=== PATIENT | female | born 1990 | race Caucasian/White ===

== ENCOUNTER 2019-05-22 08:11 | Emergency (ER) | payer MEDICAID ==
--- NOTE | 2019-05-22 09:20 | EDM.PDOC ---
ED HPI GENERAL MEDICAL PROBLEM - General Chief Complaint: General Stated Complaint: LEFT SHOULDER PAIN Time Seen by Provider: 05/22/19 08:44 Source of Information: Reports: Patient, RN Notes Reviewed - History of Present Illness INITIAL COMMENTS - FREE TEXT/NARRATIVE: 28 rolled female comes in with severe left neck, shoulder and arm discomfort. She awakened with that this morning several hours ago. The discomfort continues. She also has had some mild numbness fingers of her left hand. There has been no fall or injury. She is about 27 weeks . No current difficulties with her . No chest pain or shortness of breath. No abdominal pain nausea or vomiting. Left Shoulder Pain Score (Numeric/FACES): 8 - Related Data Allergies Allergy/AdvReac Type Severity Reaction Status Date / Time cetirizine Allergy Rash Verified 05/22/19 08:44 Home Meds: Home Meds Albuterol [Proventil HFA] 2 puff INH Q4H PRN 05/22/19 [History] Calcitriol 0.5 mcg PO BID 05/22/19 [History] Fluticasone Propionate [Flonase] 16 gm NS ASDIRECTED PRN 05/22/19 [History] Levothyroxine Sodium [Synthroid] 150 mcg PO DAILY 05/22/19 [History] Loratadine [Claritin] 10 mg PO DAILY 05/22/19 [History] Magnesium 250 mg PO DAILY 05/22/19 [History] Metoclopramide HCl 10 mg PO BID 05/22/19 [History] Pantoprazole [ProTONIX] 40 mg PO BID 05/22/19 [History] Vits #93/Iron Fum/FA [ Formula Tablet] 1 each PO DAILY [History] Social & Family History - Tobacco Use Smoking Status *Q: Never Smoker - Caffeine Use Caffeine Use: Reports: Coffee - Recreational Drug Use Recreational Drug Use: No ED ROS GENERAL - Review of Systems Review Of Systems: See Below Constitutional: Denies: Fever, Chills HEENT: Denies: Throat Pain, Vertigo, Vision Change Respiratory: Denies: Shortness of Breath Cardiovascular: Denies: Chest Pain GI/Abdominal: Denies: Abdominal Pain, Vomiting Musculoskeletal: Reports: Neck Pain, Shoulder Pain, Arm Pain Skin: Reports: No Symptoms Neurological: Reports: Numbness (has had some numbness fingers of L hand, gone) . Denies: Weakness ED EXAM, GENERAL - Physical Exam Exam: See Below General Appearance: Alert, Mild Distress Throat/Mouth: Normal Inspection Head: Atraumatic. No: Facial Swelling Neck: Supple, Other (mild tenderness L base) Respiratory/Chest: No Respiratory Distress, Lungs Clear, Normal Breath Sounds Cardiovascular: Regular Rate, Rhythm GI/Abdominal: Soft, Non-Tender, Distended Back Exam: No: CVA Tenderness (L), CVA Tenderness (R) Extremities: Normal Inspection, Normal Range of Motion, Other (L shoulder, arm nontender, without warmth or erythema, no pain with motion). No: Increased Warmth, Redness Neurological: Alert, Oriented, No Motor/Sensory Deficits Skin Exam: Warm, Dry, Normal Color Course - Vital Signs Last Recorded V/S: Last Vital Signs Temp 99.0 F 05/22/19 08:48 Pulse 93 05/22/19 08:48 Resp 18 05/22/19 08:48 BP 118/67 05/22/19 08:48 Pulse Ox 97 05/22/19 08:48 Departure - Departure Time of Disposition: 09:18 Disposition: Home, Self-Care 01 Clinical Impression: Cervical radiculopathy, Third trimester - Discharge Information Instructions: Cervical Radiculopathy, [id number] Referrals: Enid Lind MD [Primary Care Provider] - Forms: ED Department Discharge Additional Instructions: rest arm and shoulder, no heavy lifting. Alternate ice and heat as needed. Tylenol 2 to 3 times daily for mild to moderate pain or 1/2 tablet hydrocodone with 500 mg tylenol up to 3 times daily. Physical therapy. Follow up with your regular medical provider if not much better within 5 to 10 days as expected.
== END 2019-05-22 09:30 | disposition home or self-care (01) ==
LOC: JD.ED 08:11
DX: O99.89 Other specified diseases and conditions complicating pregnancy, childbirth and the puerperium (principal); M54.12 Radiculopathy, cervical region; Z88.8 Allergy status to other drugs, medicaments and biological substances; Z79.899 Other long term (current) drug therapy; Z3A.27 27 weeks gestation of pregnancy
CPT/HCPCS: 99282; 99283

== ENCOUNTER 2019-07-27 06:57 | Inpatient (IN) | payer MEDICAID ==
[2019-07-27] MEDS ORDERED: Sodium Chloride 0.9% 10 ML Syringe FLUSH PRN (08:17)
[2019-07-27] MEDS ORDERED: Nalbuphine 10 MG/1 ML Vial IVPUSH PRN (08:17)
[2019-07-27] MEDS ORDERED: Oxytocin/Lactated Ringers 10 UNIT/1,000 ML BAG IV SCH ×3 (08:30→19:20)
[2019-07-27] MEDS: Lactated Ringers 1,000 ML IV SCH ×3 (09:07→15:49)
--- NOTE | 2019-07-27 10:52 | PCM.LDHP ---
L&D History of Present Illness - General Date of Service: 07/27/19 Admit Problem/Dx: Patient Status Order with Admit Dx/Problem 07/27/19 08:17 Patient Status [ADT] Routine Admission Diagnosis/Problem Admission Diagnosis/Problem 39 weeks gestation of Source of Information: Patient - History of Present Illness Introduction:: Debbie Price is a 28-year-old -0-0-2 at 39 weeks and 0 days by certain LMP and consistent with early ultrasound who presents for elective induction of labor. She has been having ongoing Jerald Souza contractions that will occur every couple of hours that have been getting stronger over the last week. She denies any leaking of fluid or vaginal bleeding. Denies any irregularity to the contractions. Reports good movement. Timing/Duration: Reports: intermittent (And irregular contractions) Location, : Reports: Abdomen, Lower back, Pelvic Quality: Reports: Ache, Throbbing Severity: Moderate Improves with: Reports: None Worsens with: Reports: None Associated Symptoms: Denies: vaginal bleeding, vaginal discharge, vaginal fluid Present Illness Comments:: Debbie Price is a 28-year-old -0-0-2 at 39 weeks 0 days by LMP consistent with early ultrasound who presents for elective induction of labor. She has had routine care throughout the and started her care in [place] until she relocated to [place] at around 22 weeks gestational age. She was initially seeing Dr. Clark but transferred care to myself at 35 weeks gestational age. Her has been complicated by: * History of papillary thyroid cancer status post resection currently on Synthroid, calcitriol and vitamin D * History of asthma but mild in nature and not requiring albuterol inhaler * Gastroesophageal reflux disease * Endometriosis * Irritable bowel syndrome labs Blood type: O+ Antibody screen: Negative First trimester hematocrit/hemoglobin: 36.3%/12.4 on 12/26/2018 Platelets: 314 on 12/26/2018 Urine culture: Mixed mitch suggestive of contamination on 07/10/2019 Rubella status: Immune Hepatitis B surface antigen: Negative RPR: Negative HIV: Negative One hour glucose tolerance test: 139 3-hour glucose tolerance test: Normal Second trimester hemoglobin: 10.2 on 04/30/2019 Platelets: 317 on 04/30/2019 Third trimester hematocrit/hemoglobin: 31.0%/9.8 on 07/10/2019 Third trimester platelets: 387 on 07/10/2019 GBS status: Negative - Related Data Allergies/Adverse Reactions: Allergies Allergy/AdvReac Type Severity Reaction Status Date / Time cetirizine Allergy Rash Verified 05/22/19 08:44 Home Medications: Home Meds Albuterol [Proventil HFA] 2 puff INH Q4H PRN 05/22/19 [History] Calcitriol 0.5 mcg PO BID 05/22/19 [History] Fluticasone Propionate [Flonase] 16 gm NS ASDIRECTED PRN 05/22/19 [History] Levothyroxine Sodium [Synthroid] 150 mcg PO DAILY 05/22/19 [History] Loratadine [Claritin] 10 mg PO DAILY 05/22/19 [History] Magnesium 250 mg PO DAILY 05/22/19 [History] Metoclopramide HCl 10 mg PO BID 05/22/19 [History] Pantoprazole [ProTONIX] 40 mg PO BID 05/22/19 [History] Vits #93/Iron Fum/FA [ Formula Tablet] 1 each PO DAILY [History] Past Medical History Respiratory History: Reports: Asthma Gastrointestinal History: Reports: Irritable Bowel Syndrome 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 lymph node disectomy 2017 Social & Family History - Family History Family Medical History: Noncontributory - Tobacco Use Smoking Status *Q: Never Smoker Second Hand Smoke Exposure: No - Tobacco Core Measures Tobacco Use/Smoking Within Last 30 Days: No Smokeless Tobacco Use in Last 30 Days: No - Caffeine Use Caffeine Use: Reports: None - Recreational Drug Use Recreational Drug Use: No - Living Situation & Occupation Living situation: Reports: H&P Review of Systems - Review of Systems: Review Of Systems: See Below General: Denies: Fever, Chills, Malaise, Weakness, Fatigue HEENT: Denies: Post Nasal Drip, Sinus Congestion, Sore Throat Pulmonary: Denies: Shortness of Breath, Wheezing, Cough Cardiovascular: Denies: Chest Pain, Palpitations Gastrointestinal: Denies: Abdominal Pain, Constipation, Diarrhea, Nausea, Vomiting Genitourinary: Denies: Dysuria, Frequency, Burning, Pain, Urgency Skin: Denies: Rash, Lesions Psychiatric: Denies: Depression, Anxiety Neurological: Denies: Headache Hematologic/Lymphatic: Reports: Anemia L&D Exam - Exam Exam: See Below - Vital Signs Vital Signs: Last Vital Signs Temp 36.8 C 07/27/19 08:17 Pulse 82 07/27/19 08:17 Resp 16 07/27/19 08:17 BP 124/72 07/27/19 08:17 Pulse Ox Weight: 91.626 kg - OB Specific Contraction Duration (sec): 45-60 Contraction Frequency (min): 2-8 Contraction Intensity: Moderate Movement: Active Heart Tones: Present Heart Tones per Min: 140 (+15 x 15 accelerations, deceleration noted at 10 :14 AM, no additional decelerations) Heart Rate (FHR) Variability: Moderate (6-25 bmp) Presentation: Vertex Estimated Weight: 7.5-8 pounds by [facility] - Nolan Score Nolan Score Cervix Position: Midposition Nolan Score Consistency: Medium Nolan Score Effacement: 31-50% (40%) Nolan Score Dilation: 3-4 cm (3 cm) Nolan Score Infant's Station: -3 (-5) Nolan Score Total: 5 - Exam General: Alert, Oriented HEENT: Conjunctiva Clear, EOMI Neck: Supple, Trachea Midline, Other (Transverse scar noted at inferior neck) Lungs: Clear to Auscultation, Normal Respiratory Effort Cardiovascular: Regular Rate, Regular Rhythm GI/Abdominal Exam: Soft, Non-Tender, No Distention, Other (Gravid). No: Guarding, Rigid, Rebound Genitourinary: Normal external exam Extremities: Normal Inspection, Non-Tender, Pedal Edema (Trace in lower extremities to mid shins) Skin: Warm, Dry, Intact Psychiatric: Alert, Normal Affect, Normal Mood - Patient Data Lab Results Last 24 hrs: Laboratory Results - last 24 hr 07/27/19 Range/Units 08:32 WBC 13.05 H (3.98-10.04) K/mm3 RBC 3.97 L (3.98-5.22) M/mm3 Hgb 10.1 L (11.2-15.7) gm/dl Hct 32.0 L (34.1-44.9) % MCV 80.6 (79.4-94.8) fl MCH 25.4 L (25.6-32.2) pg MCHC 31.6 L (32.2-35.5) g/dl RDW Std Deviation 43.3 (36.4-46.3) fL Plt Count 332 (182-369) K/mm3 MPV 10.5 (9.4-12.3) fl Neut % (Auto) 76.8 H (34.0-71.1) % Lymph % (Auto) 15.8 L (19.3-51.7) % [place] % (Auto) 6.7 (4.7-12.5) % Eos % (Auto) 0.5 L (0.7-5.8) Baso % (Auto) 0.2 (0.1-1.2) % Neut # (Auto) 10.03 H (1.56-6.13) K/mm3 Lymph # (Auto) 2.06 (1.18-3.74) K/mm3 [place] # (Auto) 0.87 H (0.24-0.36) K/mm3 Eos # (Auto) 0.07 (0.04-0.36) K/mm3 Baso # (Auto) 0.02 (0.01-0.08) K/mm3 Result Diagrams: 07/27/19 08:32 - Problem List (1) 39 weeks gestation of SNOMED Code(s): 65544625 ICD Code: Z3A.39 - 39 WEEKS GESTATION OF Status: Acute Current Visit: Yes (2) Thyroid cancer SNOMED Code(s): 245001482 ICD Code: C73 - MALIGNANT NEOPLASM OF THYROID GLAND Status: Acute Current Visit: Yes (3) Endometriosis SNOMED Code(s): 051459502 ICD Code: N80.9 - ENDOMETRIOSIS, UNSPECIFIED Status: Acute Current Visit : Yes (4) Asthma SNOMED Code(s): 232362339 ICD Code: J45.909 - UNSPECIFIED ASTHMA, UNCOMPLICATED Status: Acute Current Visit: Yes (5) Gastroesophageal reflux in SNOMED Code(s): 01055310504439475 ICD Code: O99.619 - DISEASES OF THE DGSTV SYS COMP , UNSP TRIMESTER ; K21.9 - GASTRO-ESOPHAGEAL REFLUX DISEASE WITHOUT ESOPHAGITIS Status: Acute Current Visit: Yes Problem List Initiated/Reviewed/Updated: Yes Orders Last 24hrs: Active Orders 24 hr Category Date Time Status Patient Status [ADT] Routine ADT 07/27/19 08:17 Active Activity as Tolerated [RC] PFP Care 07/27/19 08:17 Active Communication Order [RC] ASDIRECTED Care 07/27/19 08:17 Active Communication Order [RC] ROUTINE Care 07/27/19 10:38 Ordered Heart Tones [RC] ASDIRECTED Care 07/27/19 08:17 Active Notify Provider Vital Signs [RC] PRN Care 07/27/19 08:19 Active Notify Provider [RC] PFP Care 07/27/19 08:17 Active Notify Provider [RC] PRN Care 07/27/19 08:17 Active Peripheral IV Care [RC] . DIRECTED Care 07/27/19 08:17 Active Pump Management, Intrathecal [RC] ASDIRECTED Care 07/27/19 08:20 Active Urinary Catheter Assessment [RC] ASDIRECTED Care 07/27/19 08:17 Active Vital Signs [RC] PER UNIT ROUTINE Care 07/27/19 08:17 Active Regular Diet [DIET] Diet 07/27/19 Breakfast Active RAPID PLASMA REAGIN,RPR [CHEM] Routine Lab 07/27/19 08:32 Received Lactated Ringers [Ringers, Lactated] 1,000 ml Med 07/27/19 08:30 Active IV ASDIRECTED Nalbuphine [Nubain] Med 07/27/19 08:17 Active 10 mg IVPUSH Q2H PRN Oxytocin/Lactated Ringers [Pitocin in LR 10 Units/1,000 Med 07/27/19 08:30 Active ML] 10 unit in 1,000 ml IV .CONTINUOUS Oxytocin/Lactated Ringers [Pitocin in LR 10 Units/1,000 Med 07/27/19 09:30 Active ML] 10 unit in 1,000 ml IV TITRATE Sodium Chloride 0.9% [Saline Flush] Med 07/27/19 08:17 Active 10 ml FLUSH ASDIRECTED PRN Electronic Heart Tones Ext w TOCO [WOMSER] Oth 07/27/19 08:17 Ordered Routine Electronic Heart Tones Internal [WOMSER] Per Unit Ot 07/27/19 08:17 Ordered Routine Peripheral IV Insertion Adult [OM.PC] Routine Oth 07/27/19 08:17 Ordered Resuscitation Status Routine Resus Stat 07/27/19 08:17 Ordered Medication Orders Lactated Ringer's (Ringers, Lactated) 1,000 mls @ 100 mls/hr IV ASDIRECTED SOMMER Last Admin: 07/27/19 09:07 Dose: 100 mls/hr Oxytocin/Lactated Ringer's (Pitocin In Lr 10 Units/1,000 Ml) 10 unit in 1,000 mls @ 100 mls/hr IV .CONTINUOUS SOMMER Oxytocin/Lactated Ringer's (Pitocin In Lr 10 Units/1,000 Ml) 10 unit in 1,000 mls @ 12 mls/hr IV TITRATE SOMMER; Protocol Last Titration: 07/27/19 09:30 Dose: 4 munits/min, 24 mls/hr Admin: 07/27/19 09:07 Dose: 2 munits/min, 12 mls/hr Nalbuphine HCl (Nubain) 10 mg IVPUSH Q2H PRN PRN Reason: Pain Sodium Chloride (Saline Flush) 10 ml FLUSH ASDIRECTED PRN PRN Reason: Keep Vein Open Assessment/Plan Comment:: Refer to observation for elective induction of labor Start Pitocin for induction of labor Continuous monitoring Place IV and have Lactated Ringer's at 125 ml/hr May have small amounts of regular diet Activity as tolerated May have epidural as desired Plans to breast-feed after delivery Patient to take all medications as prescribed Plan for artificial rupture of membranes once patient has had some progression of cervical dilation Anticipate vaginal delivery unless otherwise indicated Duy Tapia MD 11:03 AM 07/27/2019
[2019-07-27] MEDS ORDERED: Bupivacaine 0.25% 10 ML SDV ONE (12:00)
--- NOTE | 2019-07-27 13:29 | PCM.PNLD ---
Labor Progress Note - VS & Meds Vital Signs: Last Vital Signs Temp 36.8 C 07/27/19 08:17 Pulse 82 07/27/19 08:17 Resp 16 07/27/19 08:17 BP 124/72 07/27/19 08:17 Pulse Ox Active Medications: Current Medications Lactated Ringer's (Ringers, Lactated) 1,000 mls @ 100 mls/hr IV ASDIRECTED SOMMER Last Admin: 07/27/19 09:07 Dose: 100 mls/hr Oxytocin/Lactated Ringer's (Pitocin In Lr 10 Units/1,000 Ml) 10 unit in 1,000 mls @ 100 mls/hr IV .CONTINUOUS SOMMER Oxytocin/Lactated Ringer's (Pitocin In Lr 10 Units/1,000 Ml) 10 unit in 1,000 mls @ 12 mls/hr IV TITRATE SOMMER; Protocol Last Titration: 07/27/19 12:10 Dose: 8 munits/min, 48 mls/hr Nalbuphine HCl (Nubain) 10 mg IVPUSH Q2H PRN PRN Reason: Pain Sodium Chloride (Saline Flush) 10 ml FLUSH ASDIRECTED PRN PRN Reason: Keep Vein Open Discontinued Medications Oxytocin 20 unit/ Lactated (Ringer's) 1,002 mls @ 6.01 mls/hr IV TITRATE SOMMER; Protocol - Uterine Contractions Contraction Frequency (min): 1-3 Contraction Duration (sec): 45-60 Contraction Intensity: Moderate to Strong Uterine Resting Tone: Soft - Monitoring Monitor Mode: Doppler/Auscultation Heart Rate (FHR) Baseline: 140 Heart Rate (FHR) Per Doppler: 140 Heart Rate (FHR) Variability: Moderate (6-25 bmp) Accelerations: Present, 15x15 Decelerations: None Strip Review: Category I - Vaginal Exam Dilation (cm): 5 cm Effacement (Percent): 80% Station: -3 Cervical Position: Midposition Sterile Vaginal Exam Performed By: Duy Tapia Vaginal Exam Comment: Artificial rupture of membranes with [place] performed. Return of clear fluid mixed with bloody show mucus discharge. Mother and tolerated procedure without difficulty. - Labor Progress (Free Text) Labor Progress: Patient continuing to make good progression Artificial rupture membranes performed with return of clear fluid and mixed with blood Category 1 tracing Continue Pitocin for induction of labor Continue to monitor vitals Anticipate vaginal delivery unless otherwise indicated Duy Tapia MD 1:29 PM 07/27/2019
[2019-07-27] MEDS ORDERED: fentaNYL/Bupivacaine/NS 2 MCG-0.125% 250 ML EPIDUR PRN (13:38)
[2019-07-27] MEDS ORDERED: ePHEDrine 50 MG/ML SDV IVPUSH PRN (13:38)
[2019-07-27] MEDS ORDERED: fentaNYL 100 MCG/2 ML SDV EPIDUR PRN (13:38)
[2019-07-27] MEDS ORDERED: diphenhydrAMINE 50 MG/ML SDV IVPUSH PRN (13:38)
--- NOTE | 2019-07-27 14:43 | PCM.PREANE ---
Preanesthetic Assessment - Anesthesia/Transfusion/Family Hx Anesthesia History: Prior Anesthesia Reaction (multiple surgeries, one time had to stay intubated for 2 days following total thyroidectomy.) Family History of Anesthesia Reaction: No Transfusion History: No Prior Transfusion(s) - Review of Systems General: No Symptoms Pulmonary: No Symptoms (Mild Asthma) Cardiovascular: No Symptoms Gastrointestinal: Other (GERD ) Neurological: No Symptoms (Occasional back pain. ) Other: Reports: None - Physical Assessment Vital Signs: Last Vital Signs Temp 36.8 C 07/27/19 08:17 Pulse 82 07/27/19 08:17 Resp 16 07/27/19 08:17 BP 124/72 07/27/19 08:17 Pulse Ox Height: 1.64 m Weight: 91.626 kg ASA Class: 2 Mental Status: Alert & Oriented x3 Airway Class: Mallampati = 2 Dentition: Reports: Normal Dentition Thyro-Mental Finger Breadths: 3 Mouth Opening Finger Breadths: 3 ROM/Head Extension: Full Lungs: Clear to Auscultation, Normal Respiratory Effort Cardiovascular: Regular Rate, Regular Rhythm - Lab Values: Laboratory Last Values WBC 13.05 K/mm3 (3.98-10.04) H 07/27/19 08:32 RBC 3.97 M/mm3 (3.98-5.22) L 07/27/19 08:32 Hgb 10.1 gm/dl (11.2-15.7) L 07/27/19 08:32 Hct 32.0 % (34.1-44.9) L 07/27/19 08:32 MCV 80.6 fl (79.4-94.8) 07/27/19 08:32 MCH 25.4 pg (25.6-32.2) L 07/27/19 08:32 MCHC 31.6 g/dl (32.2-35.5) L 07/27/19 08:32 RDW Std Deviation 43.3 fL (36.4-46.3) 07/27/19 08:32 Plt Count 332 K/mm3 (182-369) 07/27/19 08:32 MPV 10.5 fl (9.4-12.3) 07/27/19 08:32 Neut % (Auto) 76.8 % (34.0-71.1) H 07/27/19 08:32 Lymph % (Auto) 15.8 % (19.3-51.7) L 07/27/19 08:32 [place] % (Auto) 6.7 % (4.7-12.5) 07/27/19 08:32 Eos % (Auto) 0.5 (0.7-5.8) L 07/27/19 08:32 Baso % (Auto) 0.2 % (0.1-1.2) 07/27/19 08:32 Neut # (Auto) 10.03 K/mm3 (1.56-6.13) H 07/27/19 08:32 Lymph # (Auto) 2.06 K/mm3 (1.18-3.74) 07/27/19 08:32 [place] # (Auto) 0.87 K/mm3 (0.24-0.36) H 07/27/19 08:32 Eos # (Auto) 0.07 K/mm3 (0.04-0.36) 07/27/19 08:32 Baso # (Auto) 0.02 K/mm3 (0.01-0.08) 07/27/19 08:32 - Allergies Allergies/Adverse Reactions: Allergies Allergy/AdvReac Type Severity Reaction Status Date / Time cetirizine Allergy Rash Verified 05/22/19 08:44 - Acknowledgements Anesthesia Type Planned: Epidural Pt an Appropriate Candidate for the Planned Anesthesia: Yes Alternatives and Risks of Anesthesia Discussed w Pt/Guardian: Yes Pt/Guardian Understands and Agrees with Anesthesia Plan: Yes PreAnesthesia Questionnaire Respiratory History: Reports: Asthma Gastrointestinal History: Reports: Irritable Bowel Syndrome 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 lymph node disectomy 2017 - SUBSTANCE USE Smoking Status *Q: Never Smoker Second Hand Smoke Exposure: No Recreational Drug Use History: No - HOME MEDS Home Medications: Home Meds Calcitriol 0.5 mcg PO BID 05/22/19 [History] Fluticasone Propionate [Flonase] 16 gm NS ASDIRECTED PRN 05/22/19 [History] Loratadine [Claritin] 10 mg PO DAILY 05/22/19 [History] Magnesium 250 mg PO DAILY 05/22/19 [History] Metoclopramide HCl 10 mg PO BID 05/22/19 [History] Pantoprazole [ProTONIX] 40 mg PO BID 05/22/19 [History] Vits #93/Iron Fum/FA [ Formula Tablet] 1 each PO DAILY [History] Levothyroxine Sodium [Synthroid] 150 mcg PO DAILY 07/27/19 [History] - CURRENT (IN HOUSE) MEDS Current Meds: Current Medications Diphenhydramine HCl (Benadryl) 25 mg IVPUSH Q6H PRN PRN Reason: pruritis Ephedrine Sulfate (Ephedrine Sulfate) 5 mg IVPUSH ASDIRECTED PRN PRN Reason: Hypotension Fentanyl (Sublimaze) 100 mcg EPIDUR Q3H PRN PRN Reason: Pain Last Admin: 07/27/19 14:34 Dose: 100 mcg Fentanyl/Bupivacaine HCl (Fentanyl/Bupivacaine/Ns 2 Mcg-0.125% 250 Ml) 0 ml EPIDUR CONTINUOUS PRN PRN Reason: Pain Last Admin: 07/27/19 14:37 Dose: 250 ml Lactated Ringer's (Ringers, Lactated) 1,000 mls @ 100 mls/hr IV ASDIRECTED SOMMER Last Admin: 07/27/19 13:33 Dose: 100 mls/hr Oxytocin/Lactated Ringer's (Pitocin In Lr 10 Units/1,000 Ml) 10 unit in 1,000 mls @ 100 mls/hr IV .CONTINUOUS SOMMER Oxytocin/Lactated Ringer's (Pitocin In Lr 10 Units/1,000 Ml) 10 unit in 1,000 mls @ 12 mls/hr IV TITRATE SOMMER; Protocol Last Titration: 07/27/19 12:10 Dose: 8 munits/min, 48 mls/hr Nalbuphine HCl (Nubain) 10 mg IVPUSH Q2H PRN PRN Reason: Pain Sodium Chloride (Saline Flush) 10 ml FLUSH ASDIRECTED PRN PRN Reason: Keep Vein Open Discontinued Medications Oxytocin 20 unit/ Lactated (Ringer's) 1,002 mls @ 6.01 mls/hr IV TITRATE SOMMER; Protocol
--- NOTE | 2019-07-27 19:06 | PCM.DEL ---
L & D Note - General Info Date of Service: 07/27/19 Mother's Due Date: 08/03/19 - Delivery Note Labor: Augmented by ARM, Induced by Oxytocin Cervical Ripening Method: Oxytocin Delivery Outcome: Livebirth Delivery Method: Spontaneous Vaginal Delivery-Single Presentation: Right Occiput Anterior (JOEY) Nuchal Cord: None Anesthesia Type: Epidural Amniotic Fluid Description: Clear Episiotomy Type: None Laceration: Labial (bilateral, left hemostatic and not repaired, right repaired with running and locked sutures of 4-0 Vicryl), Perineal (First-degree midline perineal, hemostatic and not repaired) Suture type: Vicryl Suture size: 4-0 Placenta: Intact, Spontaneous Cord: 3 Vessels Estimated Blood Loss: 200 Resuscitation Needed: No [place]: Bulb Syringe, Stimulated, Warmed, [place] Used Provider: Duy Tapia Score 1 min: 9 Score 5 min: 9 Second Stage Interventions: Reports: Pushing Effectively, Pushing, Stirrups/Leg Supports Delivery Comments (Free Text/Narrative):: Stage I: Debbie Price was admitted for elective induction of labor. On admission her cervix was dilated to 3 cm. She was GBS negative. She was started on Pitocin for induction of labor. She had artificial rupture of membranes with return of clear fluid mixed with bloody mucoid discharge. She was given an epidural for anesthesia. She progressed to complete and pushing. Stage II: On 07/27/2019 she had a normal vaginal delivery of a live male infant at 18:21. Apgars of 9 & 9. Weight of 3420 g (7 Lbs 8.6 oz). Length of 20.5 inches. There was no nuchal cord. was delivered in JOEY position. The cord was doubly clamped and cut by father of the infant. Infant was placed on mother's abdomen. Stage III: She had a spontaneous delivery of an intact placenta in Carolyn presentation. Three vessel cord. She was given pitocin and fundal massage. She had first-degree midline perineal laceration that was hemostatic and not repaired. She had bilateral labial lacerations with a hemostatic left laceration that was not repaired. The right labial laceration was repaired with 4-0 Vicryl in running and locked sutures. It was hemostatic after repair.. Mom and baby were stable to recovery. EBL of 200 mL. Duy Tapia MD 7:01 PM 07/27/2019 Induction Criteria - Nolan Score Nolan Score Dilation: 3-4 cm Nolan Score Effacement: 40-50% Nolan Score 's Station: -3 Nolan Score Consistency: Medium Nolan Score Cervix Position: Midposition Nolan Score Total: 5 Nolan Score Presenting Part: Reports: Cephalic - Induction Gestational Age >/= 39 wks: Yes Estimated Pelvis: Reports: Adequate Reassuring Monitoring Strip: Yes Absence of Tachy Systole: Yes - Augmentation Estimated Pelvis: Reports: Adequate Weight Estimated:: Reports: AGA Reassuring Monitoring Strip: Yes Absence of Tachy Systole: Yes - General Info Date of Service: 07/27/19 - Patient Data Vitals - Most Recent: Last Vital Signs Temp 36.8 C 07/27/19 08:17 Pulse 82 07/27/19 08:17 Resp 16 07/27/19 08:17 BP 124/72 07/27/19 08:17 Pulse Ox Weight - Most Recent: 91.626 kg I&O - Last 24 Hours: Intake & Output 07/27/19 07/27/19 07/27/19 06:59 14:59 22:59 Intake Total 560 Balance 560 Lab Results Last 24 Hours: Laboratory Results - last 24 hr 07/27/19 Range/Units 08:32 WBC 13.05 H (3.98-10.04) K/mm3 RBC 3.97 L (3.98-5.22) M/mm3 Hgb 10.1 L (11.2-15.7) gm/dl Hct 32.0 L (34.1-44.9) % MCV 80.6 (79.4-94.8) fl MCH 25.4 L (25.6-32.2) pg MCHC 31.6 L (32.2-35.5) g/dl RDW Std Deviation 43.3 (36.4-46.3) fL Plt Count 332 (182-369) K/mm3 MPV 10.5 (9.4-12.3) fl Neut % (Auto) 76.8 H (34.0-71.1) % Lymph % (Auto) 15.8 L (19.3-51.7) % [place] % (Auto) 6.7 (4.7-12.5) % Eos % (Auto) 0.5 L (0.7-5.8) Baso % (Auto) 0.2 (0.1-1.2) % Neut # (Auto) 10.03 H (1.56-6.13) K/mm3 Lymph # (Auto) 2.06 (1.18-3.74) K/mm3 [place] # (Auto) 0.87 H (0.24-0.36) K/mm3 Eos # (Auto) 0.07 (0.04-0.36) K/mm3 Baso # (Auto) 0.02 (0.01-0.08) K/mm3 Med Orders - Current: Current Medications Diphenhydramine HCl (Benadryl) 25 mg IVPUSH Q6H PRN PRN Reason: pruritis Ephedrine Sulfate (Ephedrine Sulfate) 5 mg IVPUSH ASDIRECTED PRN PRN Reason: Hypotension Fentanyl (Sublimaze) 100 mcg EPIDUR Q3H PRN PRN Reason: Pain Last Admin: 07/27/19 14:34 Dose: 100 mcg Fentanyl/Bupivacaine HCl (Fentanyl/Bupivacaine/Ns 2 Mcg-0.125% 250 Ml) 0 ml EPIDUR CONTINUOUS PRN PRN Reason: Pain Last Admin: 07/27/19 14:37 Dose: 250 ml Lactated Ringer's (Ringers, Lactated) 1,000 mls @ 100 mls/hr IV ASDIRECTED SOMMER Last Admin: 07/27/19 15:49 Dose: 100 mls/hr Oxytocin/Lactated Ringer's (Pitocin In Lr 10 Units/1,000 Ml) 10 unit in 1,000 mls @ 100 mls/hr IV .CONTINUOUS SOMMER Oxytocin/Lactated Ringer's (Pitocin In Lr 10 Units/1,000 Ml) 10 unit in 1,000 mls @ 12 mls/hr IV TITRATE SOMMER; Protocol Last Titration: 07/27/19 15:56 Dose: 2 munits/min, 12 mls/hr Nalbuphine HCl (Nubain) 10 mg IVPUSH Q2H PRN PRN Reason: Pain Sodium Chloride (Saline Flush) 10 ml FLUSH ASDIRECTED PRN PRN Reason: Keep Vein Open Discontinued Medications Oxytocin 20 unit/ Lactated (Ringer's) 1,002 mls @ 6.01 mls/hr IV TITRATE SOMMER; Protocol - Problem List & Annotations (1) 39 weeks gestation of SNOMED Code(s): 90543536 Code(s): Z3A.39 - 39 WEEKS GESTATION OF Status: Acute Current Visit: Yes (2) Endometriosis SNOMED Code(s): 024897888 Code(s): N80.9 - ENDOMETRIOSIS, UNSPECIFIED Status: Acute Current Visit: Yes (3) Asthma SNOMED Code(s): 474470429 Code(s): J45.909 - UNSPECIFIED ASTHMA, UNCOMPLICATED Status: Acute Current Visit: Yes (4) Gastroesophageal reflux in SNOMED Code(s): 25763772339148774 Code(s): O99.619 - DISEASES OF THE DGSTV SYS COMP , UNSP TRIMESTER; K21.9 - GASTRO-ESOPHAGEAL REFLUX DISEASE WITHOUT ESOPHAGITIS Status: Acute Current Visit: Yes (5) Vaginal delivery SNOMED Code(s): 743820332 Code(s): O80 - ENCOUNTER FOR FULL-TERM UNCOMPLICATED DELIVERY Status: Acute Current Visit: Yes (6) First degree perineal laceration during delivery SNOMED Code(s): 319894239 Code(s): O70.0 - FIRST DEGREE PERINEAL LACERATION DURING DELIVERY Status: Acute Current Visit: Yes (7) Obstetric labial laceration, delivered, current hospitalization SNOMED Code(s): 694871927, 341799154, 501664675 Code(s): O70.0 - FIRST DEGREE PERINEAL LACERATION DURING DELIVERY Status: Acute Current Visit: Yes (8) Hx of papillary thyroid carcinoma SNOMED Code(s): 198216018 Code(s): Z85.850 - PERSONAL HISTORY OF MALIGNANT NEOPLASM OF THYROID Status : Acute Current Visit: Yes - Problem List Review Problem List Initiated/Reviewed/Updated: Yes - My Orders Last 24 Hours: My Active Orders 07/27/19 08:17 Patient Status [ADT] Routine Activity as Tolerated [RC] PFP Communication Order [RC] ASDIRECTED Heart Tones [RC] ASDIRECTED Notify Provider [RC] PFP Notify Provider [RC] PRN Peripheral IV Care [RC] . DIRECTED Urinary Catheter Assessment [RC] ASDIRECTED Vital Signs [RC] PER UNIT ROUTINE Nalbuphine [Nubain] 10 mg IVPUSH Q2H PRN Sodium Chloride 0.9% [Saline Flush] 10 ml FLUSH ASDIRECTED PRN Electronic Heart Tones Ext w TOCO [WOMSER] Routine Electronic Heart Tones Internal [WOMSER] Per Unit Routine Peripheral IV Insertion Adult [OM.PC] Routine Resuscitation Status Routine 07/27/19 08:19 Notify Provider Vital Signs [RC] PRN 07/27/19 08:20 Pump Management, Intrathecal [RC] ASDIRECTED 07/27/19 08:30 Lactated Ringers [Ringers, Lactated] 1,000 ml IV ASDIRECTED Oxytocin/Lactated Ringers [Pitocin in LR 10 Units/1,000 ML] 10 unit in 1,000 ml IV .CONTINUOUS 07/27/19 08:32 RAPID PLASMA REAGIN,RPR [CHEM] Routine 07/27/19 09:30 Oxytocin/Lactated Ringers [Pitocin in LR 10 Units/1,000 ML] 10 unit in 1,000 ml IV TITRATE 07/27/19 10:38 Communication Order [RC] ROUTINE 07/27/19 18:48 Patient Status Manage Transfer [TRANSFER] Routine 07/27/19 Breakfast Regular Diet [DIET] - Plan Plan:: Admit to inpatient following normal spontaneous vaginal delivery Continue Pitocin per unit protocol following delivery of placenta and lactated Ringer's until tolerating regular diet Regular diet Vitals per unit routine Ibuprofen and Tylenol for pain control Assist with breast-feeding as needed Continue to monitor lochia Patient may take home medications as prescribed Anticipate discharge home on day #1 Duy Tapia MD 7:01 PM 07/27/2019
[2019-07-27] MEDS ORDERED: Hydrocortisone Acetate 25 MG Supp RECTAL PRN (19:20)
[2019-07-27] MEDS ORDERED: Docusate Sodium 100 MG Cap PO PRN (19:20)
[2019-07-27] MEDS ORDERED: Witch Hazel Medicated Pads 40/Jar TOP PRN (19:20)
[2019-07-27] MEDS ORDERED: Benzocaine/Menthol 20%-0.5% Spray 56 GM Canister TOP PRN (19:20)
[2019-07-27] MEDS: Ibuprofen 600 MG Tab PO PRN (19:51)
[2019-07-28] MEDS: Ibuprofen 600 MG Tab PO PRN ×2 (03:34→13:19)
[2019-07-28] MEDS: Acetaminophen 325 MG Tab PO PRN ×2 (05:50→15:53)
[2019-07-28] MEDS ORDERED: Prenatal Multivitamin with Calcium/Folic Acid/Iron Tab PO SCH (09:00)
--- NOTE | 2019-07-28 09:30 | PCM.SN ---
- Free Text/Narrative Note: Post Progress Note PPD # 1 Subjective: Doing well overall. Ambulating without difficulty. Lochia minimal. Voiding without difficulty. Tolerating regular diet without nausea or vomiting. Pain controlled with oral medications. Reports mild amount of cramping that is improved with use of Motrin. Breast-feeding with minimal difficulty. Objective: Vitals: Vital Signs - 24 hr 07/27/19 07/28/19 07/28/19 22:20 02:34 02:45 Temperature 36.1 C 36.5 C Temperature 36.6 C Oral Pulse, 74 78 Peripheral Pulse, 78 Peripheral brachial Respiratory 14 15 15 Rate Blood Pressure 118/72 109/51 L Blood Pressure 109/51 L Upper Arm O2 Sat by Pulse 98 97 97 Oximetry 07/28/19 07/28/19 07/28/19 07:41 07:47 08:00 Temperature Temperature 36.7 C Oral Pulse, 78 Peripheral Pulse, Peripheral brachial Respiratory 14 Rate Blood Pressure 113/65 Blood Pressure Upper Arm O2 Sat by Pulse 96 Oximetry Physical Exam General: Alert and oriented, no acute distress Lungs: Clear to auscultation bilaterally Heart: Regular rate and rhythm Abdomen: Soft, minimal appropriate tenderness, non-distended, fundus midline, nontender, and at the umbilicus Extremities: Trace edema in bilateral lower extremities to ankles ASSESSMENT: 28-year-old female -0-0-3 s/p normal vaginal delivery PPD #1, complicated by history of papillary thyroid cancer status post thyroidectomy on medications for replacement hormones, endometriosis, gastroesophageal reflux disease and asthma PLAN: Doing well Breast-feeding with minimal difficulty. Assist as needed Lochia minimal. Continue to monitor for appropriate lochia. Continue routine care Continue home medications as prescribed Anticipate discharge home today if infant able to be discharged Duy Tapia MD 9:29 AM 07/28/2019
--- NOTE | 2019-07-28 09:31 | PCM.DCSUM1 ---
Discharge Summary - Hospital Course Free Text/Narrative:: Stage I: Debbie Price was admitted for elective induction of labor. On admission her cervix was dilated to 3 cm. She was GBS negative. She was started on Pitocin for induction of labor. She had artificial rupture of membranes with return of clear fluid mixed with bloody mucoid discharge. She was given an epidural for anesthesia. She progressed to complete and pushing. Stage II: On 07/27/2019 she had a normal vaginal delivery of a live male at 18:21. Apgars of 9 & 9. Weight of 3420 g (7 Lbs 8.6 oz). Length of 20.5 inches. There was no nuchal cord. Infant was delivered in JOEY position. The cord was doubly clamped and cut by father of the . was placed on mother's abdomen. Stage III: She had a spontaneous delivery of an intact placenta in Carolyn presentation. Three vessel cord. She was given pitocin and fundal massage. She had first-degree midline perineal laceration that was hemostatic and not repaired. She had bilateral labial lacerations with a hemostatic left laceration that was not repaired. The right labial laceration was repaired with 4-0 Vicryl in running and locked sutures. It was hemostatic after repair.. Mom and baby were stable to recovery. EBL of 200 mL. HPI Initial Comments: Stage I: Debbie Price was admitted for elective induction of labor. On admission her cervix was dilated to 3 cm. She was GBS negative. She was started on Pitocin for induction of labor. She had artificial rupture of membranes with return of clear fluid mixed with bloody mucoid discharge. She was given an epidural for anesthesia. She progressed to complete and pushing. Stage II: On 07/27/2019 she had a normal vaginal delivery of a live male at 18:21. Apgars of 9 & 9. Weight of 3420 g (7 Lbs 8.6 oz). Length of 20.5 inches. There was no nuchal cord. was delivered in JOEY position. The cord was doubly clamped and cut by father of the . was placed on mother's abdomen. Stage III: She had a spontaneous delivery of an intact placenta in Carolyn presentation. Three vessel cord. She was given pitocin and fundal massage. She had first-degree midline perineal laceration that was hemostatic and not repaired. She had bilateral labial lacerations with a hemostatic left laceration that was not repaired. The right labial laceration was repaired with 4-0 Vicryl in running and locked sutures. It was hemostatic after repair.. Mom and baby were stable to recovery. EBL of 200 mL. Brief History: Stage I: Debbie Price was admitted for elective induction of labor. On admission her cervix was dilated to 3 cm. She was GBS negative. She was started on Pitocin for induction of labor. She had artificial rupture of membranes with return of clear fluid mixed with bloody mucoid discharge. She was given an epidural for anesthesia. She progressed to complete and pushing. Stage II: On 07/27/2019 she had a normal vaginal delivery of a live male infant at 18:21. Apgars of 9 & 9. Weight of 3420 g (7 Lbs 8.6 oz). Length of 20.5 inches. There was no nuchal cord. Infant was delivered in JOEY position. The cord was doubly clamped and cut by father of the . was placed on mother's abdomen. Stage III: She had a spontaneous delivery of an intact placenta in Carolyn presentation. Three vessel cord. She was given pitocin and fundal massage. She had first-degree midline perineal laceration that was hemostatic and not repaired. She had bilateral labial lacerations with a hemostatic left laceration that was not repaired. The right labial laceration was repaired with 4-0 Vicryl in running and locked sutures. It was hemostatic after repair.. Mom and baby were stable to recovery. EBL of 200 mL. Diagnosis: Stroke: No - Discharge Data Discharge Date: 07/28/19 Discharge Disposition: Home, Self-Care 01 Condition: Good - Referral to Home Health Primary Care Physician: Duy Tapia MD - Discharge Diagnosis/Problem(s) (1) 39 weeks gestation of SNOMED Code(s): 89873480 ICD Code: Z3A.39 - 39 WEEKS GESTATION OF Status: Acute Current Visit: Yes (2) Endometriosis SNOMED Code(s): 536589740 ICD Code: N80.9 - ENDOMETRIOSIS, UNSPECIFIED Status: Acute Current Visit : Yes (3) Asthma SNOMED Code(s): 004341607 ICD Code: J45.909 - UNSPECIFIED ASTHMA, UNCOMPLICATED Status: Acute Current Visit: Yes (4) Gastroesophageal reflux in SNOMED Code(s): 02935305897042118 ICD Code: O99.619 - DISEASES OF THE DGSTV SYS COMP , UNSP TRIMESTER ; K21.9 - GASTRO-ESOPHAGEAL REFLUX DISEASE WITHOUT ESOPHAGITIS Status: Acute Current Visit: Yes (5) Vaginal delivery SNOMED Code(s): 769635654 ICD Code: O80 - ENCOUNTER FOR FULL-TERM UNCOMPLICATED DELIVERY Status: Acute Current Visit: Yes (6) First degree perineal laceration during delivery SNOMED Code(s): 956618218 ICD Code: O70.0 - FIRST DEGREE PERINEAL LACERATION DURING DELIVERY Status: Acute Current Visit: Yes (7) Obstetric labial laceration, delivered, current hospitalization SNOMED Code(s): 713181550, 606372767, 417215225 ICD Code: O70.0 - FIRST DEGREE PERINEAL LACERATION DURING DELIVERY Status: Acute Current Visit: Yes (8) Hx of papillary thyroid carcinoma SNOMED Code(s): 344442219 ICD Code: Z85.850 - PERSONAL HISTORY OF MALIGNANT NEOPLASM OF THYROID Status: Acute Current Visit: Yes - Patient Summary/Data Complications: None Consults: None Hospital Course: Debbie Price was admitted for elective induction of labor. On admission her cervix was dilated to 3 cm. She was GBS negative. She was given pitocin for augmentation. She had artificial rupture of membranes with clear fluid. She was given an epidural for anesthesia. She progressed to complete and began pushing. On 07/27/2019 she had a normal vaginal delivery of a live male at 1821. Apgars of 9 and 9. Weight of 3420 g (7 pounds 8.6 ounces). Her course was uneventful. Her pain was well controlled and she had minimal lochia. She was ambulating, tolerating a regular diet and voiding normally. She was breast-feeding with minimal difficulty. She was afebrile and her hematocrit was 32.0 on admission. She desired to be discharged home in the evening of PPD #1. Her blood type is O+. - Patient Instructions Diet: Regular Diet as Tolerated Activity: Apply Ice, As Tolerated Activity, Other: Nothing in the vagina for 6 weeks Driving: May Drive Today Showering/Bathing: May Shower Notify Provider of: Fever, Increased Pain, Swelling and Redness, Drainage, Nausea and/or Vomiting Other/Special Instructions: Please contact your physician's office if you have heavy vaginal bleeding enough to soak a pad in less than an hour for several hours. Monitor for any signs of an infection in the breasts with severe pain or redness of the breast. - Discharge Plan *PRESCRIPTION DRUG MONITORING PROGRAM REVIEWED*: Not Applicable *COPY OF PRESCRIPTION DRUG MONITORING REPORT IN PATIENT [place]: Not Applicable Home Medications: Home Meds Calcitriol 0.5 mcg PO BID 05/22/19 [History] Fluticasone Propionate [Flonase] 16 gm NS ASDIRECTED PRN 05/22/19 [History] Loratadine [Claritin] 10 mg PO DAILY 05/22/19 [History] Magnesium 250 mg PO DAILY 05/22/19 [History] Metoclopramide HCl 10 mg PO BID 05/22/19 [History] Pantoprazole [ProTONIX] 40 mg PO BID 05/22/19 [History] Vits #93/Iron Fum/FA [ Formula Tablet] 1 each PO DAILY [History] Levothyroxine Sodium [Synthroid] 150 mcg PO DAILY 07/27/19 [History] Acetaminophen [Tylenol] 650 mg PO Q6H PRN tablet 07/28/19 [Rx] Benzocaine/Menthol [Dermoplast Pain Relief [place]] 1 spray TOP ASDIRECTED PRN canister 07/28/19 [Rx] Docusate Sodium [Colace] 100 mg PO BID PRN cap 07/28/19 [Rx] Hydrocortisone Acetate [Anucort-HC] 25 mg RECTAL BID PRN supp 07/28/19 [Rx] Ibuprofen [Motrin] 600 mg PO Q6H PRN tablet 07/28/19 [Rx] Witch Crystal [Tucks] 1 pad TOP ASDIRECTED PRN pad 07/28/19 [Rx] Patient Handouts: Vaginal Delivery, Care After, Care of a Perineal Tear Referrals: Duy Tapia MD [Primary Care Provider] - (Follow-up in 2 weeks for routine visit or earlier as needed.) - Discharge Summary/Plan Comment DC Time >30 min.: No - Patient Data Vitals - Most Recent: Last Vital Signs Temp 36.7 C 07/28/19 08:00 Pulse 78 07/28/19 07:47 Resp 14 07/28/19 07:41 BP 113/65 07/28/19 07:41 Pulse Ox 96 07/28/19 07:47 Weight - Most Recent: 91.626 kg I&O - Last 24 hours: Intake & Output 07/27/19 07/28/19 07/28/19 22:59 06:59 14:59 Intake Total 4360 Balance 4360 Med Orders - Current: Current Medications Acetaminophen (Tylenol) 650 mg PO Q6H PRN PRN Reason: mild pain or fever Last Admin: 07/28/19 05:50 Dose: 650 mg Benzocaine/Menthol (Dermoplast Pain Relief [place]) 0 gm TOP ASDIRECTED PRN PRN Reason: Perineal Comfort Measure Last Admin: 07/27/19 19:50 Dose: 1 canister Docusate Sodium (Colace) 100 mg PO BID PRN PRN Reason: Constipation Hydrocortisone Acetate (Anucort-Hc) 25 mg RECTAL BID PRN PRN Reason: Hemorrhoid pain Oxytocin/Lactated Ringer's (Pitocin In Lr 10 Units/1,000 Ml) 10 unit in 1,000 mls @ 100 mls/hr IV TITRATE SOMMER; Protocol Ibuprofen (Motrin) 600 mg PO Q6H PRN PRN Reason: Mild pain or fever Last Admin: 07/28/19 03:34 Dose: 600 mg Prenat Multivit/[place]/Iron/Folic Ac ( Plus Iron) 1 each PO DAILY SOMMER Last Admin: 07/28/19 09:12 Dose: Not Given Adebayo Willsonel (Tucks) 1 pad TOP ASDIRECTED PRN PRN Reason: Perineal Comfort Measure Last Admin: 07/27/19 19:51 Dose: 1 tub Discontinued Medications Bupivacaine HCl (Sensorcaine-Mpf 0.25%) 10 ml .ROUTE .STK-MED ONE Stop: 07/27/19 12:01 Diphenhydramine HCl (Benadryl) 25 mg IVPUSH Q6H PRN PRN Reason: pruritis Ephedrine Sulfate (Ephedrine Sulfate) 5 mg IVPUSH ASDIRECTED PRN PRN Reason: Hypotension Fentanyl (Sublimaze) 100 mcg EPIDUR Q3H PRN PRN Reason: Pain Last Admin: 07/27/19 14:34 Dose: 100 mcg Fentanyl/Bupivacaine HCl (Fentanyl/Bupivacaine/Ns 2 Mcg-0.125% 250 Ml) 0 ml EPIDUR CONTINUOUS PRN PRN Reason: Pain Last Admin: 07/27/19 14:37 Dose: 250 ml Lactated Ringer's (Ringers, Lactated) 1,000 mls @ 100 mls/hr IV ASDIRECTED SOMMER Last Admin: 07/27/19 15:49 Dose: 100 mls/hr Oxytocin 20 unit/ Lactated (Ringer's) 1,002 mls @ 6.01 mls/hr IV TITRATE SOMMER; Protocol Oxytocin/Lactated Ringer's (Pitocin In Lr 10 Units/1,000 Ml) 10 unit in 1,000 mls @ 100 mls/hr IV .CONTINUOUS SOMMER Oxytocin/Lactated Ringer's (Pitocin In Lr 10 Units/1,000 Ml) 10 unit in 1,000 mls @ 12 mls/hr IV TITRATE SOMMER; Protocol Last Titration: 07/27/19 15:56 Dose: 2 munits/min, 12 mls/hr Nalbuphine HCl (Nubain) 10 mg IVPUSH Q2H PRN PRN Reason: Pain Sodium Chloride (Saline Flush) 10 ml FLUSH ASDIRECTED PRN PRN Reason: Keep Vein Open
--- NOTE | 2019-07-28 11:01 | PCM48HPAN ---
Post Anesthesia Note - EVALUATION WITHIN 48HRS OF ANESTHETIC Vital Signs in Normal Range: Yes Patient Participated in Evaluation: Yes Respiratory Function Stable: Yes Airway Patent: Yes Cardiovascular Function Stable: Yes Hydration Status Stable: Yes Pain Control Satisfactory: Yes Nausea and Vomiting Control Satisfactory: Yes Mental Status Recovered: Yes Vital Signs: Last Vital Signs Temp 36.7 C 07/28/19 08:00 Pulse 78 07/28/19 07:47 Resp 14 07/28/19 07:41 BP 113/65 07/28/19 07:41 Pulse Ox 96 07/28/19 07:47 - COMMENTS/OBSERVATIONS Free Text/Narrative:: Debbie is up ambulating this morning. No further concerns or questions at this time.
== END 2019-07-28 20:10 | disposition home or self-care (01) | DRG 807 ==
LOC: JD.OB 06:57 → OBSVTOIN 18:21 → JD.OB 18:22
PROVIDERS: ADMIT Obstetrics & Gynecology; ATTEND Obstetrics & Gynecology
PROC: 10E0XZZ Delivery of Products of Conception, External Approach (ICD-10-PCS; principal; 2019-07-27)
PROC: 10907ZC Drainage of Amniotic Fluid, Therapeutic from Products of Conception, Via Natural or Artificial Opening (ICD-10-PCS; 2019-07-27)
PROC: 3E033VJ Introduction of Other Hormone into Peripheral Vein, Percutaneous Approach (ICD-10-PCS; 2019-07-27)
PROC: 0UQMXZZ Repair Vulva, External Approach (ICD-10-PCS; 2019-07-27)
DX: O99.52 Diseases of the respiratory system complicating childbirth (principal); Z37.0 Single live birth; O70.0 First degree perineal laceration during delivery; Z3A.39 39 weeks gestation of pregnancy; J45.909 Unspecified asthma, uncomplicated; O99.284 Endocrine, nutritional and metabolic diseases complicating childbirth; E03.9 Hypothyroidism, unspecified; Z85.850 Personal history of malignant neoplasm of thyroid; K21.9 Gastro-esophageal reflux disease without esophagitis; O99.62 Diseases of the digestive system complicating childbirth; N80.9 Endometriosis, unspecified
CPT/HCPCS: 36415; 51702; 59025; 59409; 85025; 86592; A9270-GY; J2590; J3010; J3490; J7120